=== PATIENT | female | born 1995 | race Two or more races ===

== ENCOUNTER 2025-01-31 22:40 | Emergency (ER) | payer OTHER ==
[~2025-01-31] VITALS: Ht 149.9 cm; Wt 68.1 kg
[2025-01-31] MEDS ORDERED: CLOTCRE3 EX (23:05)
[2025-01-31] MEDS ORDERED: FLUC200T50 PO (23:05)
--- NOTE | 2025-01-31 23:09 | ED.PDOC ---
WEIGHTER HPI Comments Pt presents to the ER with C/O of vaginal irritation s/p yeast infection. Per pt she was diagnosed with yeast infection x2 weeks ago and completed course of medication. Pt reports skin in genital region is "rubbed raw" and she is unable to tolerate using the restroom. Pt noted to be hypertensive, patient reports has a scheduled appointment with OB in February due to this issue relates it to possibly side effects of the IUD. She notes her PCP did a full workup urine, STD panel, BV panel all negative reports positive yeast infection. BP- 154/106 pt states hx of HTN and is compliant with medication. -dizziness, headache, or blurred vision. PMH- endometriosis, HT Chief Complaint: Rash Time Seen by MD: 22:41 Reviewed Notes: Nurses Notes, Medications, Allergies Allergies: Coded Allergies: NO KNOWN ALLERGIES (Unverified , 08/07/14) Information Source: Patient Past Medical History PAST MEDICAL HISTORY: Denies Surgical History: Denies all surgeries PERSONAL CARE SERVICE PROVIDER History: Other (Frequent yeast infections to possible IUD) Family History Family History: Unknown Social History Smoker: Non-Smoker Alcohol: Denies ETOH Use Drugs: Denies Drug Use, Cocaine All Other Systems: Reviewed and Negative (see hpi) Physical Exam General Appearance: No Apparent Distress, Normal HEENT: Pharynx Normal Neck: Full Range of Motion, Non-Tender Respiratory: Lungs Clear, No Respiratory Distress, Normal Breath Sounds Cardiovascular: No Edema, No Murmur, Normal Peripheral Pulses, Regular Rate/Rhythm Breast Exam: Deferred Gastrointestinal: No Organomegaly, Non Tender, No Pulsatile Mass, Normal Bowel Sounds, Soft Genitalia: Deferred Pelvic: None, Other (Erythemic papular rash noted within the labor drawer bilateral no noted discharge or lesions. Manager Corporate Strategy present Janna) Rectal: Deferred Extremities: Normal capillary refill, No pedal edema Musculoskeletal : Apperance: Normal Neurologic: Alert, No Motor Deficits, Normal Affect, Normal Mood, No Sensory Deficits Cerebellar Function: Normal Reflexes: NOT DONE Skin: Dry, Normal Color, Warm Lymphatic: No Adenopathy Was a procedure done? Was a procedure done?: No Differential Diagnosis (PERSONAL CARE SERVICE PROVIDER) Vaginal Discharge: UTI, Vaginitis - Atrophic, Vaginitis - Bacterial, Vaginitis - Candidal, Vaginitis - Contact, Vaginitis - Herpes, Vaginitis - Trichomonas X-Ray, Labs, Meds, VS Vital Signs Date Time Temp Pulse Resp B/P (MAP) Pulse Ox O2 Delivery O2 Flow Rate FiO2 01/31/25 22:41 98.3 78 16 154/106 100 98.3 X-Ray, Labs, Meds, VS Comment We will script trial of clotrimazole/dexamethasone in five day course of fluconazole advised take medication as prescribed side effects discussed. Advised to follow up with the OBGYN appointment as scheduled. Follow up with your PCP in 2-3 days as necessary ER return precautions given patient indicates understanding agrees with discharge plan of care. Time of 1ST Reevaluation: 22:41 Reevaluation 1ST: Unchanged Time of 2ND Reevaluation: 23:08 Reevaluation 2ND: Improved Patient Education/Counseling: Diagnosis, Treatment, Need For Follow Up Family Education/Counseling: No Family Present Departure 1 Departure Time of Disposition: 23:08 Impression: Primary Impression: Vaginitis and vulvovaginitis Disposition: 01 HOME / SELF CARE / HOMELESS Condition: Stable e-Prescriptions Clotrimazole W/ Betamethasone (Clotrimazole/Betamethason 1-0.05 %) 1 Cre Cre 1 APPLIC EX BID for 7 Days, #15 GRAMS Prov: REGGIE IRVIN 01/31/25 Fluconazole (Fluconazole) 200 Mg Tab 1 TAB PO DAILY for 5 Days, #5 TAB Prov: REGGIE IRVIN 01/31/25 Discharged With: Self Critical Care Note Critical Care Time?: No Stability Stability form required: REGGIE Pereyra Jan 31, 2025 23:09
[2025-01-31 23:22] VITALS: BP 124/63; PULSE 77; RESP 18; TEMP 97.8; O2SAT 98
[2025-01-31] MEDS: FLUCONAZOLE 100 MG TAB PO ONE (23:28)
== END 2025-01-31 23:29 | disposition home or self-care (01) ==
LOC: ER 22:40
DX: N76.0 Acute vaginitis (principal); I10 Essential (primary) hypertension

== ENCOUNTER 2025-02-12 01:11 | Emergency (ER) | payer OTHER ==
[~2025-02-12] VITALS: Ht 149.9 cm; Wt 73.7 kg
[2025-02-12 01:17] VITALS: BP 159/100; PULSE 92; RESP 16; TEMP 99.1; O2SAT 98
[2025-02-12 02:06] LABS: Hematocrit 42.6 % (36.0-46.0); Hemoglobin 14.5 g/dL (12.2-16.2); Mean Corpuscular Hemoglobin 29.0 pg (28.0-32.0); Mean Corpuscular Volume 85.1 fL (80.0-100.0); Nucleated Red Blood Cells % 0.1 %
--- NOTE | 2025-02-12 02:13 | ED.PDOC ---
History of Present Illness HPI Comments 29 y/o obese F, with a Hx of UTI's, presents with c/c of nonradiating, lower back pain, incomplete urinary retention, burning dysuria, nausea, and vomiting. Patient reports on history of frequents UTI's and coming to the ED, due to no relief or improvement of current symptoms following completion of most recent antibiotic course of ciprofloxacin on 02/07/25. Denial of any further acute symptoms. Chief Complaint: Urinary Time Seen by MD: 01:50 Reviewed Notes: Nurses Notes, Medications, Allergies Allergies: Coded Allergies: NO KNOWN ALLERGIES (Unverified , 08/07/14) Home Meds Active Scripts Fluconazole (Diflucan) 150 Mg Tab, 150 MG PO DAILY for 3 Days, #3 TAB Prov:MICHELE STERN MD 02/12/25 Sulfamethoxazole W/Trimethopri (Bactrim Ds Tablet) 1 Tab Tb, 1 TAB PO BID for 7 Days, #14 TAB Prov:MICHELE STERN MD 02/12/25 Discontinued Scripts Clotrimazole W/ Betamethasone (Clotrimazole/Betamethason 1-0.05 %) 1 Cre Cre, 1 APPLIC EX BID for 7 Days, #15 GRAMS Prov:REGGIE IRVIN 01/31/25 Fluconazole (Fluconazole) 200 Mg Tab, 1 TAB PO DAILY for 5 Days, #5 TAB Prov:REGGIE IRVIN 01/31/25 Information Source: Patient Mode of Arrival: Ambulatory Severity: Moderate Timing: Hours Duration: Since onset Prehospital treatment: None Past Medical History PAST MEDICAL HISTORY: UTI'S Surgical History: Denies all surgeries JUNIOR BUYER History: Other Family History Family History: Unknown Social History Smoker: Non-Smoker Alcohol: Denies ETOH Use Drugs: Denies Drug Use Lives In: Home All Other Systems: Reviewed and Negative (Comprehensive review of systems are negative unless stated in HPI) Physical Exam General Appearance: Mild Distress, Obese HEENT: Normal ENT Inspection, Pharynx Normal, TMs Normal Neck: Full Range of Motion, Non-Tender, Normal, Normal Inspection Respiratory: Chest Non-Tender, Lungs Clear, No Accessory Muscle Use, No Respiratory Distress, Normal Breath Sounds Cardiovascular: No Edema, No JVD, No Murmur, No Gallop, Normal Peripheral Pulses, Regular Rate/Rhythm Breast Exam: Deferred Gastrointestinal: No Organomegaly, Non Tender, No Pulsatile Mass, Normal Bowel Sounds, Soft Genitalia: Deferred Pelvic: Deferred Rectal: Deferred Extremities: No calf tenderness, Normal capillary refill, Normal inspection, Normal range of motion, Non-tender, No pedal edema Musculoskeletal : Apperance: Normal Neurologic: Alert, medical program specialist II-XII nml as Tested, No Motor Deficits, Normal Affect, Normal Mood, No Sensory Deficits Cerebellar Function: Normal Reflexes: Normal Skin: Dry, Normal Color, Warm Lymphatic: No Adenopathy Was a procedure done? Was a procedure done?: No Differential Dx Considerations may include: UTI, vaginitis, nephrolithiasis, viral syndrome, musculoskeletal pain, PID, ovarian cysts/torsion, among others X-Ray, Labs, Meds, VS Vital Signs Date Time Temp Pulse Resp B/P (MAP) Pulse Ox O2 Delivery O2 Flow Rate FiO2 02/12/25 01:17 99.1 92 16 159/100 98 99.1 Lab Test 02/12/25 02:03 02/12/25 01:49 Range/Units Urine Color Light-yellow Yellow Urine Clarity Clear Clear Urine pH 6.5 5.0-9.0 Urine Specific Roy 1.031 1.001-1.035 Urine Protein Negative Negative Urine Ketones Negative Negative Urine Blood Negative Negative /uL Urine Nitrite Negative Negative Urine Bilirubin Negative Negative Urine Urobilinogen Normal Negative mg/dL Urine Leukocyte Esterase 1+ Negative /uL Urine RBC None seen 0 - 4 /hpf Urine Microscopic WBC 7 H 0-5 /HPF Urine Squamous Epithelial Cells Mod <5 /hpf Urine Bacteria None seen None Seen /hpf Urine Mucus Few None Seen Urine Glucose Normal Normal mg/dL White Blood Count 10.9 H 4.4-10.8 10^3/uL Red Blood Count 5.01 4.0-5.20 10^6/uL Hemoglobin 14.5 12.2-16.2 g/dL Hematocrit 42.6 36.0-46.0 % Mean Corpuscular Volume 85.1 80.0-100.0 fL Mean Corpuscular Hemoglobin 29.0 28.0-32.0 pg Mean Corpuscular Hemoglobin Concent 34.1 32.0-36.0 g/dL Red Cell Distribution Width 14.0 11.8-14.3 % Platelet Count 380 140-450 10^3/uL Mean Platelet Volume 6.9 6.9-10.8 fL Neutrophils (%) (Auto) 52.5 37.0-80.0 % Lymphocytes (%) (Auto) 40.6 10.0-50.0 % Monocytes (%) (Auto) 4.9 0.0-12.0 % Eosinophils (%) (Auto) 1.1 0.0-7.0 % Basophils (%) (Auto) 0.9 0.0-2.0 % Neutrophils # (Auto) 5.7 1.6-8.6 10 ^3/uL Lymphocytes # (Auto) 4.4 0.4-5.4 10 ^3/uL Monocytes # (Auto) 0.5 0-1.3 10 ^3/uL Eosinophils # (Auto) 0.1 0-0.8 10 ^3/uL Basophils # (Auto) 0.1 0-0.2 10 ^3/uL Nucleated Red Blood Cells 0.1 % Sodium Level 140 136-145 mmol/L Potassium Level 3.8 3.5-5.1 mmol/L Chloride Level 104 98-107 mmol/L Carbon Dioxide Level 26 20-31 mmol/L Anion Gap 10 5-15 Blood Urea Nitrogen 14 9-23 mg/dL Creatinine 0.75 0.550-1.02 mg/dL Glomerular Filtration Rate Calc 111 >90 mL/min BUN/Creatinine Ratio 18.7 10.0-20.0 Serum Glucose 115 H 74-106 mg/dL Lactic Acid Level 1.8 0.4-2.0 mmol/L Calcium Level 9.8 8.7-10.4 mg/dL Time of 1ST Reevaluation: 02:20 Reevaluation 1ST: Unchanged Patient Education/Counseling: Treatment, Need For Follow Up Family Education/Counseling: No Family Present SEPSIS Sepsis Screen Date sepsis recognized/suspect: Feb 12, 2025 Time Sepsis recognized/suspect: 0123 Recent Procedure: No On Antibiotic Therapy: No Respiratory Rate >20: No Heart Rate >90: No Temp<36 C (96.8 F) or >38.3 C: No SBP <90 or MAP <65 mmHG: No New Acute Mental Status Change: No Is the patient on CPAP, BIPAP,: No Physician Orders Blood Culture (02/12/25 01:28) Vital Signs Date Time Temp Pulse Resp B/P (MAP) Pulse Ox O2 Delivery O2 Flow Rate FiO2 02/12/25 01:17 99.1 92 16 159/100 98 99.1 Laboratory Tests Test 02/12/25 01:49 Lactic Acid Level 1.8 mmol/L (0.4-2.0) White Blood Count 10.9 10^3/uL (4.4-10.8) H Departure 1 Departure Time of Disposition: 04:00 Impression: Primary Impression: Urinary tract infection Additional Impression: Vaginitis and vulvovaginitis Disposition: HOME / SELF CARE / HOMELESS Condition: Stable e-Prescriptions Fluconazole (Diflucan) 150 Mg Tab 150 MG PO DAILY for 3 Days, #3 TAB Prov: MICHELE STERN MD 02/12/25 Sulfamethoxazole W/Trimethopri (Bactrim Ds Tablet) 1 Tab Tb 1 TAB PO BID for 7 Days, #14 TAB Prov: MICHELE STERN MD 02/12/25 Discharged With: Self Critical Care Note Critical Care Time?: No Stability Stability form required: No Heart Score Heart Score: Heart Score Response (Comments) Value History N/A 0 EKG N/A 0 Age N/A 0 Risk Factors N/A 0 Troponin N/A 0 Total 0 I personally scribed for MICHELE STERN MD ([email or web address]) on 02/12/25 at 02:12. Electronically submitted by Yunior Dumont ([email or web address]). MICHELE STERN MD Feb 12, 2025 02:12
[2025-02-12 02:16] LABS: Chloride 104 mmol/L (98-107); Potassium 3.8 mmol/L (3.5-5.1); Sodium 140 mmol/L (136-145)
[2025-02-12 02:17] LABS: Anion Gap 10 (5-15); Calcium 9.8 mg/dL (8.7-10.4); Carbon Dioxide 26 mmol/L (20-31)
[2025-02-12 02:22] LABS: BUN/Creatinine Ratio 18.7 (10.0-20.0); Blood Urea Nitrogen 14 mg/dL (9-23)
[2025-02-12 02:33] LABS: Glucose 115 mg/dL (74-106)
[2025-02-12 03:33] LABS: Urine Protein, UAD Negative (Negative)
[2025-02-12] MEDS ORDERED: BACDST PO (04:20)
[2025-02-12] MEDS ORDERED: FLUC150T38 PO (04:21)
[2025-02-12] MEDS ORDERED: FLUCONAZOLE 100 MG TAB PO ONE (04:30)
[2025-02-12] MEDS ORDERED: cefTRIAXone W LIDOCAINE 1 GM IM IM ONE (04:30)
== END 2025-02-12 04:27 | disposition home or self-care (01) ==
LOC: ER 01:17
DX: N39.0 Urinary tract infection, site not specified (principal); N76.0 Acute vaginitis; Z79.899 Other long term (current) drug therapy
CPT/HCPCS: 36415; 80048; 81001; 83605; 85025; 87040; J0696